=== PATIENT | female | born 1980 | race Caucasian/White ===

== ENCOUNTER → 2018-07-09 | Outpatient (CLI) | payer BC ==
[~2018-07-09] MED LIST: IBIFON 600600 MG PO; PERCOCET 325 MG1 TA2 PO
== END ==
LOC: MC.RAD 15:30
DX: Z12.31 Encounter for screening mammogram for malignant neoplasm of breast (principal); N63.11 Unspecified lump in the right breast, upper outer quadrant

== ENCOUNTER → 2018-07-15 | Outpatient (CLI) | payer BC | LOC: MC.RAD 12:58 | DX: N60.01 Solitary cyst of right breast (principal); Z80.3 Family history of malignant neoplasm of breast ==

== ENCOUNTER 2020-09-20 20:13 | Observation (INO) | payer SELFPAY ==
[~2020-09-20] VITALS: Ht 162.6 cm; Wt 57.7 kg
[2020-09-20 22:02] LABS: BASO # 0.1 (0.0-0.2); BASO % 0.5 % (0.0-2.0); EOS # 0.1 (0.0-0.7); EOS % 0.5 % (0-4.0); GRAN % 82.8 % (42.2-75.2); HEMATOCRIT 37.9 % (37.0-47.0); HEMOGLOBIN 13.3 g/dl (12.5-16.0); LYMPH # 1.2 (1.2-3.4); LYMPH % 9.3 % (20.0-51.0); MEAN CELL VOLUME 86 fl (80.0-100.0); MEAN CORPUSCULAR HEMOGLOBIN 30 pg (27.0-31.0); MEAN CORPUSCULAR HGB CONC 35 g/dl (33.0-37.0); MEAN PLATELET VOLUME 9.5 fl (7.4-10.4); MONO # 0.9 (0.1-0.6); MONO % 6.6 % (1.7-9.3); PLATELET COUNT 314 K/mm3 (130-400); RED BLOOD COUNT 4.43 M/mm3 (4.10-5.30); REDCELL DISTRIBUTION WIDTH-CV 12.1 % (11.5-14.5)
[2020-09-20 22:18] LABS: BILIRUBIN,TOTAL 0.6 mg/dL (0.0-1.0); CALCIUM 9.1 mg/dL (8.4-10.2); CREATININE, serum 0.59 (0.52-1.25); POTASSIUM 3.6 mmol/L (3.4-5.0); TOTAL PROTEIN 6.6 gm/dL (6.4-8.2)
[2020-09-20 22:59] LABS: COLLECTION METHOD CLEAN CATCH
[2020-09-20 23:05] LABS: MUCOUS Present /lpf; PH 7 (5-8); URINE APPEARANCE Clear; URINE BACTERIA None Seen /hpf; URINE BILIRUBIN Negative (NEGATIVE); URINE BLOOD Negative (NEGATIVE); URINE COLOR Yellow; URINE GLUCOSE Negative (NEGATIVE); URINE KETONE 1+ (NEGATIVE); URINE LEUKOCYTE ESTERASE Negative (NEGATIVE); URINE NITRATE Negative (NEGATIVE); URINE PROTEIN(semi-quant) Negative (NEGATIVE); URINE RBC 0-2 /hpf; URINE UROBILINOGEN Negative (NEGATIVE)
[2020-09-21] VITALS (10 sets, daily range): BP systolic 102–123; BP diastolic 58–79; PULSE 52–99; TEMP 97.8–98.6
[2020-09-21] MEDS ORDERED: PERCOCET 325 MG1 TA2 PO (03:05)
[2020-09-21] MEDS ORDERED: IBU600 MG PO (03:05)
--- NOTE | 2020-09-21 03:35 | NUR ---
Patient to room 221 via bed from PACU. Patient is alert, denies pain. IV to right AC with LR infusing. 3 bandaids to abdomen CDI. SCDs to bilateral lower extremities. Assessment completed. Plan of care reviewed.
--- NOTE | 2020-09-21 10:30 | NUR ---
Patient escorted off unit by Patricia Tellez following discharge instructions by this RN. Patient will call office to schedule follow up with Dr. Javier. Denies questions.
== END 2020-09-21 10:30 | disposition home or self-care (01) ==
LOC: COL.ER 20:13 → OB 09-21 01:32
PROVIDERS: Emergency Medicine Emergency Medical Services; ADMIT Obstetrics & Gynecology
DX: N83.512 Torsion of left ovary and ovarian pedicle (principal); N83.12 Corpus luteum cyst of left ovary; N83.02 Follicular cyst of left ovary; N83.8 Other noninflammatory disorders of ovary, fallopian tube and broad ligament; F32.9 Major depressive disorder, single episode, unspecified; F41.9 Anxiety disorder, unspecified; Z79.899 Other long term (current) drug therapy; Z90.710 Acquired absence of both cervix and uterus
CPT/HCPCS: J1100; J1170; J1885; J2405; J2710; J3010; J7030; Q9967

== ENCOUNTER 2021-01-01 12:44 | Emergency (ER) | payer OTHER ==
[~2021-01-01 12:44] MED LIST changes: +IBU600 MG PO
[2021-01-01 13:03] VITALS: TEMP 98.5
[2021-01-01] MEDS ORDERED: ADDERALL30 MG PO (13:24)
[2021-01-01] MEDS ORDERED: LEXAPRO20 MG PO (13:24)
[2021-01-01 13:28] LABS: BASO % 0.7 % (0.0-2.0); EOS # 0.3 K/mm3 (0.0-0.7); GRAN # 3.1 K/mm3 (1.4-6.5); GRAN % 53.8 % (42.2-75.2); HEMATOCRIT 40.5 % (37.0-47.0); HEMOGLOBIN 13.7 g/dl (12.5-16.0); LYMPH # 1.6 K/mm3 (1.2-3.4); LYMPH % 27.2 % (20.0-51.0); MEAN CELL VOLUME 87 fl (80.0-100.0); MEAN CORPUSCULAR HEMOGLOBIN 29 pg (27.0-31.0); MEAN CORPUSCULAR HGB CONC 34 g/dl (33.0-37.0); MEAN PLATELET VOLUME 9.2 fl (7.4-10.4); MONO # 0.6 K/mm3 (0.1-0.6); MONO % 11.1 % (1.7-9.3); PLATELET COUNT 377 K/mm3 (130-400); RED BLOOD COUNT 4.66 M/mm3 (4.10-5.30); REDCELL DISTRIBUTION WIDTH-CV 12.8 % (11.5-14.5)
[2021-01-01 13:42] LABS: ALANINE AMINOTRANSFERASE 20 U/L (0-55); ALBUMIN 3.7 gm/dL (3.5-5.0); ALKALINE PHOSPHATASE 76 U/L (40-150); ANION GAP 6 mmol/L (7-16); AST,SGOT 16 U/L (5-34); BILIRUBIN,TOTAL 0.4 mg/dL (0.2-1.2); BLOOD UREA NITROGEN 8 mg/dL (7-19); CALCIUM 8.9 mg/dL (8.4-10.2); CARBON DIOXIDE 28 mmol/L (22-29); CHLORIDE 105 mmol/L (98-107); CREATININE, serum 0.69 mg/dL (0.57-1.11); GLUCOSE 79 mg/dL (70-99); POTASSIUM 4.1 mmol/L (3.5-4.5); SODIUM 139 mmol/L (136-145)
[2021-01-01 13:58] LABS: TROPONIN-I < 0.010 ng/mL (0.00-0.033)
[2021-01-01 15:02] LABS: COLLECTION METHOD CLEAN CATCH
[2021-01-01 15:17] LABS: MUCOUS Present /lpf; PH 6 (5-8); URINE APPEARANCE Clear; URINE BACTERIA None Seen /hpf; URINE BILIRUBIN Negative (NEGATIVE); URINE BLOOD Negative (NEGATIVE); URINE COLOR Straw; URINE GLUCOSE Negative (NEGATIVE); URINE KETONE Negative (NEGATIVE); URINE LEUKOCYTE ESTERASE Negative (NEGATIVE); URINE NITRATE Negative (NEGATIVE); URINE PROTEIN(semi-quant) Negative (NEGATIVE); URINE RBC 0-2 /hpf; URINE UROBILINOGEN Negative (NEGATIVE)
[2021-01-01 15:35] VITALS: BP 120/82; PULSE 83
== END 2021-01-01 14:41 | disposition home or self-care (01) ==
LOC: COL.ER 12:44
PROVIDERS: Nurse Practitioner Primary Care
DX: U07.1 COVID-19 (principal); F41.9 Anxiety disorder, unspecified; F32.A Depression, unspecified; Z79.899 Other long term (current) drug therapy
CPT/HCPCS: J1100; J1885; J7030

== ENCOUNTER → 2021-01-03 | Outpatient (CLI) | payer OTHER ==
[~2021-01-03] MED LIST changes: +ADDERALL30 MG PO; +LEXAPRO20 MG PO
== END ==
LOC: COL.LAB 09:48
DX: R07.89 Other chest pain (principal)